=== PATIENT | male | born 1970 | race Caucasian/White ===

== ENCOUNTER 2017-10-12 11:16 | Emergency (ER) | payer OTHER, SELFPAY ==
--- NOTE | 2017-10-12 13:07 | RAD ---
LEFT KNEE 4 VIEWS: HISTORY: Knee pain. FINDINGS: There are marked arthritic changes of the medial compartment of the knee, also with patellofemoral an d lateral compartment degenerative changes. Small joint effusion. There is an area of lucency along the lateral side of the tibia near the tibiofibular joint, with overall features suggesting a benign lesion. IMPRESSION: Moderate arthritic changes of the knee with a small joint effusion. POS: KIRSTEN
== END 2017-10-12 13:34 | disposition home or self-care (01) ==
LOC: ERS 11:16
DX: M17.12 Unilateral primary osteoarthritis, left knee (principal); E03.9 Hypothyroidism, unspecified; J45.909 Unspecified asthma, uncomplicated; F41.9 Anxiety disorder, unspecified; F31.9 Bipolar disorder, unspecified; F17.210 Nicotine dependence, cigarettes, uncomplicated; Z79.899 Other long term (current) drug therapy

== ENCOUNTER 2017-10-29 17:15 | Emergency (ER) | payer OTHER ==
[2017-10-29] MEDS ORDERED: Ketorolac Tromethamine 30 MG/ML VIAL ONE (17:55)
[2017-10-29] MEDS ORDERED: Acetaminophen/Codeine 30-300mg Tablet ONE (18:29)
== END 2017-10-29 18:54 | disposition home or self-care (01) ==
LOC: ERS 17:15
DX: M25.562 Pain in left knee (principal); G89.29 Other chronic pain; J45.909 Unspecified asthma, uncomplicated; F41.9 Anxiety disorder, unspecified; F31.9 Bipolar disorder, unspecified; F17.210 Nicotine dependence, cigarettes, uncomplicated; E03.9 Hypothyroidism, unspecified
CPT/HCPCS: 96372; J1885

== ENCOUNTER 2018-03-28 09:17 | Day surgery (SDC) | payer OTHER ==
[2018-03-28 10:16] LABS: #Eosinphils 0.3 thou/uL (0.0-0.7)
[2018-03-28] MEDS ORDERED: Midazolam HCl 2 mg/2 ml Vial ONE (10:18)
[2018-03-28] MEDS ORDERED: Fentanyl 100 MCG/2 ML VIAL ONE ×5 (10:18→13:18)
[2018-03-28] MEDS ORDERED: Lidocaine 1% (PF) 30 ML VIAL ONE (10:18)
[2018-03-28] MEDS ORDERED: Sodium Chloride 0.9% 100 ML ONE (10:20)
[2018-03-28] MEDS ORDERED: CEFAZOLIN 2 GM/50 ML BAG ONE (10:20)
[2018-03-28] MEDS ORDERED: Tranexamic Acid 1,000 MG/10 ML VIAL ONE (10:20)
[2018-03-28] MEDS ORDERED: diphenhydrAMINE 25 MG CAP PO PRN (10:24)
[2018-03-28] MEDS ORDERED: traMADol HCl 50 MG TAB PO PRN ×3 (10:24→10:44)
[2018-03-28] MEDS ORDERED: Fentanyl 100 MCG/2 ML VIAL SLOW IVP PRN ×2 (10:24)
[2018-03-28] MEDS ORDERED: Ondansetron PF 4 MG/2 ML Vial IVP PRN ×2 (10:24→10:44)
[2018-03-28] MEDS ORDERED: HYDROcodone/Acetaminophen 10/325 mg Tablet PO PRN ×3 (10:24→10:44)
[2018-03-28] MEDS ORDERED: Promethazine HCl 25 MG/ML VIAL IM PRN ×3 (10:24→11:32)
[2018-03-28] MEDS ORDERED: Zolpidem Tartrate 5 MG TAB PO PRN ×2 (10:24→10:44)
[2018-03-28] MEDS ORDERED: Acetaminophen 325 MG TAB PO PRN (10:24)
[2018-03-28] MEDS ORDERED: CEFAZOLIN/Water 2 GM/20 ML SYRINGE SLOW IVP SCH (10:30)
[2018-03-28] MEDS ORDERED: Ropivacaine HCl/PF 250 ML in Premix Bag 1 BAG NERVE BLCK SCH (10:44)
[2018-03-28 10:56] LABS: #Lymphocytes 1.5 thou/uL (1.20-3.40); #Monocytes 0.4 thou/uL (0.11-0.59); #Neutrophils 1.9 thou/uL (1.40-6.50); %Basophils 1.1 % (0.0-1.0); %Eosinophils 6.8 % (0.0-10.0); %Lymphocytes 37.2 % (21.0-51.0); %Monocytes 8.8 % (0.0-10.0); %Neutrophils 46.1 % (42.0-75.0); Mean Corpuscular HGB CONC 34.6 g/dL (32.0-36.0); Mean Corpuscular Hemoglobin 32.6 pg (27.0-31.0); Mean Corpuscular Volume 94.4 fL (78.0-98.0); Platelet Count 232 thou/uL (130-400); RBC Distribution Width 11.9 % (11.5-14.5); Red Blood Cell (RBC) Count 4.59 mill/uL (4.70-6.10); White Blood Cell (WBC) Count 4.1 thou/uL (4.8-10.8)
[2018-03-28 11:02] LABS: PTT 27.9 SEC (22.9-36.1)
[2018-03-28] MEDS ORDERED: Ondansetron HCl/PF 4 MG/2 ML Vial IVP PRN (11:32)
[2018-03-28] MEDS ORDERED: Promethazine HCl 25 MG/ML VIAL SLOW IVP PRN (11:32)
[2018-03-28 11:45] LABS: Chloride 109 mmol/L (98-107); Sodium 139 mmol/L (136-145)
[2018-03-28 11:46] LABS: Calcium 8.7 mg/dL (7.8-10.44); Glucose 100 mg/dL (70-105)
[2018-03-28 11:48] LABS: Anion Gap 10 mmol/L (10-20); Carbon Dioxide 24 mmol/L (22-29)
[2018-03-28 11:49] LABS: Calc. Creatinine Clearance 125 mL/min (70-130); Estimated GFR-MDRD Greater than 90
[2018-03-28 11:50] LABS: BUN (Urea Nitrogen) 9 mg/dL (8.9-20.6)
[2018-03-28] MEDS ORDERED: Morphine 4 MG/ML VIAL ONE (12:40)
--- NOTE | 2018-03-28 13:16 | EKG ---
Test Reason : PREOP Blood Pressure : / mmHG Vent. Rate : 071 BPM Atrial Rate : 071 BPM P-R Int : 168 ms QRS Dur : 082 ms QT Int : 338 ms P-R-T Axes : 067 070 051 degrees QTc Int : 367 ms Normal sinus rhythm Minimal voltage criteria for LVH, may be normal variant Borderline ECG When compared with ECG of 01-OCT-2016 18:32, Vent. rate has decreased BY 43 BPM Criteria for Anterior infarct are no longer Present Confirmed by KAIA WOLF, SEdith ([id number]) on 03/28/2018 1:16:22 PM Referred By: DOUG Confirmed By:DR. Umesh MARTI MD
--- NOTE | 2018-03-28 13:22 | RAD ---
PA AND LATERAL CHEST: Date: 03/28/18 INDICATION: History of preoperative chest radiograph. COMPARISON: Prior exam dated 09/25/10. FINDINGS: There is no confluent air space opacity, pleural effusion, or pneumothorax evident. Heart size is wit hin normal limits. No pleural effusion is noted. No acute osseous abnormality is evident. IMPRESSION: No definite acute cardiopulmonary abnormality. POS: H
--- NOTE | 2018-03-28 13:46 | RAD ---
TWO VIEWS LEFT KNEE: Indication: Left knee post op evaluation. Comparison: 10-12-17 IMPRESSION: Since the prior examination there has been interval placement of left total knee prosthesis. Prosthet ic components are in the expected position. There is scattered intraarticular and periarticular soft tissue gas consistent with patient's recent post-operative state. POS: VANCE
[2018-03-28] MEDS ORDERED: Morphine 4 MG/ML VIAL SLOW IVP SCH (14:15)
[2018-03-28 14:52] VITALS: BMI 23.1
[2018-03-28] MEDS ORDERED: Bupivacaine 0.25% HCL 30 ML VIAL ONE (15:53)
[2018-03-28] MEDS ORDERED: Ropivacaine 0.5% HCl/PF (150 MG/30 ML VIAL) ONE (15:53)
[2018-03-28] MEDS: Sodium Chloride 0.9% 1,000 ML IV SCH ×2 (15:55→23:29)
[2018-03-28] MEDS: HYDROcodone/Acetaminophen 10/325 mg Tablet PO PRN ×2 (15:58→20:40)
[2018-03-28] MEDS ORDERED: Ketorolac Tromethamine 30 MG/ML VIAL ONE (16:46)
[2018-03-28] MEDS ORDERED: Ondansetron PF 4 MG/2 ML Vial ONE (16:46)
[2018-03-28] MEDS ORDERED: PROPOFOL 200 MG/20 ML VIAL ONE (16:46)
[2018-03-28] MEDS: CEFAZOLIN 2 GM/50 ML-DEXTROSE 2 GM in Premix Bag 1 BAG IVPB SCH (17:25)
--- NOTE | 2018-03-28 17:27 | OP ---
DATE OF PROCEDURE: 03/28/2018 PREOPERATIVE DIAGNOSIS: Degenerative joint disease, left knee. POSTOPERATIVE DIAGNOSIS: Degenerative joint disease, left knee. LEASING PROPERTY MANAGER: Nolan Barry PA-C. BLOOD LOSS: Minimal. SPECIMEN: None. DRAINS: None. COMPLICATIONS: None. TOURNIQUET TIME: 50 minutes. PROCEDURE PERFORMED: Left total knee replacement using [place] Triathlon 5 femur, 4 tibia, 32 mm patella, and 9 mm CS X3 polyethylene. PROCEDURE IN DETAIL: After informed consent was obtained in the preoperative holding area, the patient was taken to the operative suite where general anesthesia was induced. Once adequate level of general anesthesia was obtained, the patient was positioned and a well-padded tourniquet was placed around the left proximal thigh. The left lower extremity was then prepped and draped in the usual sterile fashion. Prior to exsanguination, a time-out was called and all members of the surgical team agreed upon site, surgeon, and patient. The extremity was then exsanguinated and the tourniquet was raised. A midline longitudinal incision was then made directly over the patella extending 2 fingerbreadths above the superior pole of the patella and 2 fingerbreadths inferior to the inferior patellar pole of the patella. Deeper subcutaneous layers were dissected sharply and local bleeding was controlled with Bovie electrocautery. A quad tendon longitudinal split was then made sharply and a median parapatellar arthrotomy was carried out both sharp and with Bovie electrocautery, carried down to 1 fingerbreadth medial to the tibial tubercle. The knee was then placed into flexion and the patella was everted nicely, and a copious fat pad ectomy was performed allowing for greater exposure of the tibia. The computer-assisted distal femoral fiducial was then placed and pinned firmly, and the distal femoral cutting guide was pinned firmly into place. The oscillating saw was then used to remove the appropriate amount of bone. The 4-in-1 cutting block was then placed on the distal femur and the oscillating saw was used to remove the appropriate amount of bone off the anterior, posterior, and chamfer cuts. After completion of bone cuts, the anterior cruciate ligament was resected sharply and the posterior cruciate ligament retractor was placed and the tibia was subluxed for better exposure. Partial meniscectomies were carried out, and the tibial computer-assisted fiducial was pinned, and the cutting guide was placed. Oscillating saw was then used to remove the bone, with Hohmann retractors used to take care and protect the collateral ligaments. After the tibial resection was performed, a laminar denitrator operator was placed in between the freshened bone cuts. The knee placed at 90 degrees and further bilateral meniscectomies were carried out, and the curved osteotome and curettage were used to remove any excess bone spurs in the posterior compartment. The trial femoral component, tibial baseplate were placed with the appropriate polyethylene trial insert with an appropriate polyethylene spacer and patellar button. The knee was taken through full range of motion with flexion and extension from 0 to 90 degrees and patellar broach squarely in the trochlea without any squinting or subluxation noted. The knee was also stable to varus and valgus stressing at 0, 15, 45, and 90 degrees of flexion. The drawer was negative. All trial components were then removed and the keel punch was used to provide the appropriate defect in the tibia with a mallet. The freshened bone cuts were copiously irrigated with pulsatile lavage of about 1.5 L to remove all excess debris. The freshened bone cuts were then dried with suction and lap sponge. The knee was placed in flexion and retractors were placed to provide access to all bone cuts. Tobramycin-impregnated methyl methacrylate cement was then placed on the freshened bone cuts and implants which were malleted firmly into place. Curettage and [place] elevators were used to remove any excess bone cement. The knee was placed into full extension and the patellar button was placed under compression, and the cement was allowed to cure. Once completed, the components were again taken through full range of motion and copious irrigation of the knee was carried out with another liter of normal saline. All components were inspected fully with full range of motion and varus and valgus stressing. There was no laxity noted and full extension was observed clinically. Primary closure was accomplished with #2 interrupted Vicryl stitch of the arthrotomy defect. This was oversewn with a #2 running Quill barbed stitch. The gravitational platelet system was then injected into the arthrotomy prior to closure. The subcutaneous layer was then closed with a running 0 barbed Monocryl stitch and skin closure accomplished with a running subcuticular 3-0 Monocryl barbed Quill stitch and augmented with cement on the skin. Tourniquet was lowered. Good spontaneous return of distal pulses was noted clinically and a sterile dressing was applied to the incision. The procedure was terminated without any complications. The patient was awakened in the operative suite and the was removed, and the patient was taken to the recovery room in stable condition. Job ID: [id number]
[2018-03-28] MEDS: Aspirin 81 mg Enteric Coated Tablet PO SCH (20:39)
[2018-03-28] MEDS ORDERED: clonazePAM 0.5 MG TAB PO SCH (21:00)
[2018-03-28] MEDS ORDERED: clonazePAM 1 MG TAB PO SCH (21:45)
[2018-03-28] MEDS: Fentanyl 100 MCG/2 ML VIAL IV PRN (23:19)
[2018-03-29] MEDS: Fentanyl 100 MCG/2 ML VIAL IV PRN ×4 (01:54→10:14)
[2018-03-29] MEDS: CEFAZOLIN 2 GM/50 ML-DEXTROSE 2 GM in Premix Bag 1 BAG IVPB SCH (02:49)
[2018-03-29] MEDS: HYDROcodone/Acetaminophen 10/325 mg Tablet PO PRN ×5 (02:50→23:05)
[2018-03-29 04:34] LABS: Hemoglobin 13.2 g/dL (14.0-18.0); Mean Corpuscular HGB CONC 34.8 g/dL (32.0-36.0); Mean Corpuscular Hemoglobin 33.1 pg (27.0-31.0); Mean Corpuscular Volume 95.1 fL (78.0-98.0); Mean Platelet Volume 7.2 fL (7.4-10.4); Platelet Count 208 thou/uL (130-400); RBC Distribution Width 11.9 % (11.5-14.5); White Blood Cell (WBC) Count 9.7 thou/uL (4.8-10.8)
[2018-03-29] MEDS: Levothyroxine Sodium 100 MCG TAB PO SCH (05:41)
--- NOTE | 2018-03-29 07:32 | OP ---
DATE OF PROCEDURE: 03/28/2018 PREOPERATIVE DIAGNOSIS: Degenerative joint disease, left knee. POSTOPERATIVE DIAGNOSIS: Degenerative joint disease, left knee. PROCEDURE: Left total knee arthroplasty using [place] Triathlon 5 femur, 4 tibia, 9 mm CSX3 polyethy kyle, A32 patella. SURGEON: Gil Greene M.D. COURT OPERATIONS CLERK: Nolan Barry PA-C. BLOOD LOSS: Minimal. SPECIMEN: None. DRAINS: None. COMPLICATIONS: None. TOURNIQUET TIME: 50 minutes. PROCEDURE IN DETAIL: After informed consent was obtained in the preoperative holding area. The coleman ent was taken to the operative suite where general anesthesia was induced. Once adequate level of ge neral anesthesia was obtained, the patient was positioned and a well-padded tourniquet was placed fausto und the left proximal thigh. The left lower extremity was then prepped and draped in the usual steri le fashion. Prior to exsanguination, a time out was called and all members of the surgical team agre ed upon site, surgeon, and patient. The extremity was then exsanguinated and the tourniquet was rais ed. A midline longitudinal incision was then made directly over the patella extending two fingerbrea dths above the superior pole of the patella and two fingerbreadths inferior to the inferior patellar pole of the patella. Deeper subcutaneous layers were dissected sharply and local bleeding was contro lled with Bovie electrocautery. A quad tendon longitudinal split was then made sharply and a median parapatellar arthrotomy was carried out both sharp and with Bovie electrocautery, carried down to one fingerbreadth medial to the tibial tubercle. The knee was then placed into flexion and the patella was everted nicely, and a copious fat pad ectomy was performed allowing for greater exposure of the t ibia. The computer-assisted distal femoral fiducial was then placed and pinned firmly, and the dista l femoral cutting guide was pinned firmly into place. The oscillating saw was then used to remove th e appropriate amount of bone. The 4-in-1 cutting block was then placed on the distal femur and the o scillating saw was used to remove the appropriate amount of bone off of the anterior, posterior, and chamfer cuts. After completion of bone cuts, the anterior cruciate ligament was resected sharply and the posterior cruciate ligament retractor was placed and the tibia was subluxed for better exposure. Partial meniscectomies were carried out, and the tibial computer-assisted fiducial was pinned, and the cutting guide was placed. Oscillating saw was then used to remove the bone with Hohmann retracto rs used to take care and protect the collateral ligaments. After the tibial resection was performed, a laminar snaker tractor driver was placed in between the freshened bone cuts. The knee placed at 90 degrees and further bilateral meniscectomies were carried out, and the curved osteotome and curettage was used t o remove any excess bone spurs in the posterior compartment. The trial femoral component, tibial bas eplate were placed with the appropriate polyethylene trial insert with an appropriate polyethylene sp acer and patellar button. The knee was taken through full range of motion with flexion and extension from 0-90 degrees and patellar broach squarely in the trochlea without any squinting or subluxation noted. The knee was also stable to varus and valgus stressing at 0, 15, 45, and 90 degrees of flexio n. The drawer was negative. All trial components were then removed and the keel punch was used to pr ovide the appropriate defect in the tibia with a mallet. The freshened bone cuts were copiously irri gated with pulsatile lavage of about 1-1/2 liters to remove all excess debris. The freshened bone cu ts were then dried and with suction and lap sponge. The knee was placed in flexion and retractors we re placed to provide access to all bone cuts. Tobramycin impregnated methyl methacrylate cement was then placed on the freshened bone cuts and implants which were malleted firmly into place. Curettage and [place] elevators were used to remove any excess bone cement. The knee was placed into full exten etienne and the patellar button was placed under compression, and the cement was allowed to cure. Once completed, the components were again taken through full range of motion and copious irrigation of the knee was carried out with another liter of normal saline. All components were inspected fully with full range of motion and varus and valgus stressing. There was no laxity noted and full extension was observed clinically. Primary closure was accomplished with #2 interrupted Vicryl stitch of the arth rotomy defect. This was oversewn with a #2 running Quill barbed stitch. The gravitational platelet system was then injected into the arthrotomy prior to closure. The subcutaneous layer was then close d with a running 0 barbed Monocryl stitch and skin closure accomplished with a running subcuticular 3 -0 Monocryl barbed Quill stitch and augmented with cement on the skin. Tourniquet was lowered. Good spontaneous return of distal pulses was noted clinically and a sterile dressing was applied to the i ncision. The procedure was terminated without any complications. The patient was awakened in the op erative suite and the tourniquet was removed, and the patient was taken to the recovery room in stabl e condition.
[2018-03-29] MEDS ORDERED: Diabetic Tussin 200 MG/10 ML UDCUP PO PRN (07:45)
[2018-03-29] MEDS ORDERED: Acetaminophen 500 MG TAB PO PRN (07:45)
[2018-03-29] MEDS ORDERED: Diphenoxylate HCl/Atropine Tablet PO PRN (07:45)
[2018-03-29] MEDS ORDERED: Cepastat Lozenges 1 LOZ PO PRN (07:45)
[2018-03-29] MEDS ORDERED: hydrALAZINE 20 MG/ML VIAL SLOW IVP PRN (07:45)
[2018-03-29] MEDS ORDERED: Loperamide HCl 2 MG CAP PO PRN (07:45)
[2018-03-29] MEDS ORDERED: Eucerin (Mineral Oil/Petrolatum,White) 30 gm Jar TOP PRN (07:45)
[2018-03-29] MEDS ORDERED: Bisacodyl 5 MG TAB PO PRN (07:45)
[2018-03-29] MEDS ORDERED: HYDROcodone/Acetaminophen 5/325 mg Tablet PO PRN (07:45)
[2018-03-29] MEDS ORDERED: Loratadine 10 MG TAB PO PRN (07:45)
[2018-03-29] MEDS ORDERED: Sodium Chloride 0.65% Nasal 44 ML BOT EA NARE PRN (07:45)
[2018-03-29] MEDS ORDERED: Artificial Tears 18 DROP/0.9 ML EA EYE PRN (07:45)
[2018-03-29] MEDS: Multivitamin W/ Minerals 1 TAB PO SCH (07:54)
[2018-03-29] MEDS: Senokot S 8.6-50 MG TAB PO SCH ×2 (07:54→20:54)
[2018-03-29] MEDS: Aspirin 81 mg Enteric Coated Tablet PO SCH ×2 (07:55→20:54)
[2018-03-29] MEDS: Ferrous Gluconate 324 MG TAB PO SCH ×2 (07:55→20:55)
[2018-03-29] MEDS: Sodium Chloride 0.9% 1,000 ML IV SCH ×3 (07:58→21:44)
[2018-03-29] MEDS ORDERED: PHENTERMINE HCL 37.5 MG PO SCH (09:00)
[2018-03-29] MEDS: Nicotine 21 MG PATCH TD SCH (09:11)
[2018-03-29] MEDS: Famotidine 20 MG TAB PO SCH ×2 (09:11→20:55)
--- NOTE | 2018-03-29 14:56 | CON ---
DATE OF CONSULTATION: 03/29/2018 PRIMARY CARE PHYSICIAN: Dr. Willian Estrada, hand spinner. The patient does not have any new primary care physician. REASON FOR ADMISSION: Elective admission for left total knee replacement. REASON FOR CONSULTATION: Medical co-management. HISTORY OF PRESENT ILLNESS: A 47-year-old male who has underlying history of hypothyroidism, who presented to the hospital for left knee pain. The patient has a worsening left knee pain for the last two months. The patient was following Dr. Greene as an outpatient basis. The patient had a trial of all conservative treatment options without any significant improvement. The patient's left knee pain was bothering his routine activities and quality of life and that is why Dr. Greene admitted him for elective admission for left total knee replacement. The patient had left total knee replacement on March 28, 2018, without any complication and postoperatively, the patient is admitted to [facility] and we are consulted for medical co-management. The patient was seen by me today and he has a left knee swelling. He has left knee pain. He does not have any fever, chills, chest pain, or dizziness. His pain is overall controlled with pain medication and he has nerve block in place. REVIEW OF SYSTEMS: Please see my HPI for pertinent positive and negative. All other review of systems reviewed and negative except as mentioned in the HPI. REVIEW OF SYSTEMS: The following complete review of systems was negative, unless otherwise mentioned in the HPI or below: Constitutional: Weight loss or gain, ability to conduct usual activities. Skin: Rash, itching. Eyes: Double vision, pain. ENT/Mouth: Nose bleeding, neck stiffness, pain, tenderness. Cardiovascular: Palpitations, dyspnea on exertion, orthopnea. Respiratory: Shortness of breath, wheezing, cough, hemoptysis, fever or night sweats. Gastrointestinal: Poor appetite, abdominal pain, heartburn, nausea, vomiting, constipation, or diarrhea. Genitourinary: Urgency, frequency, dysuria, nocturia. Musculoskeletal: Pain, swelling. Neurologic/Psychiatric: Anxiety, depression. Allergy/Immunologic: Skin rash, bleeding tendency. PAST MEDICAL HISTORY: Klinefelter syndrome, hypothyroidism, and asthma. PAST SURGICAL HISTORY: Status post left total knee replacement yesterday. PAST PSYCHIATRIC HISTORY: Anxiety, depression, and bipolar disorder. SOCIAL HISTORY: The patient is smoking about half a pack per day. He denies any other illicit drug abuse. He is . He drinks alcohol socially. ALLERGIES: NO KNOWN DRUG ALLERGY. FAMILY HISTORY: No strong family history of premature coronary artery disease, stroke, or cancer. CURRENT HOME MEDICATIONS: 1. Clonazepam 0.5 mg three tablets at bedtime. 2. Levothyroxine 100 mcg p.o. daily. 3. Phentermine 37.5 half a tablet daily. 4. Testosterone 50 mg IM every week. HOSPITAL COURSE: Reviewed. PHYSICAL EXAMINATION: VITAL SIGNS: Currently, temperature 99.3, pulse 88, respiratory rate 16, saturation 100% on room air, blood pressure 162/90, and weight 185 pounds. GENERAL: The patient is currently alert, awake, in no obvious acute distress. Pain is controlled. HEAD: Normocephalic, atraumatic. EYES: Pupils are round, reactive to light. Extraocular muscles intact. ENT: Oropharynx within normal limits. Moist mucous membranes. No oral lesion. No pharyngeal erythema. No exudate. NECK: Supple. No thyromegaly. No carotid bruits. No jugular venous distention. LUNGS: Clear to auscultation without any rhonchi or rales. CARDIAC: S1, S2, regular. No murmur elicited. No gallop. No rub. ABDOMEN: Soft. Bowel sounds present. Nontender and nondistended. No organomegaly. No mass. No suprapubic tenderness. BACK: Unremarkable. No CVA tenderness. EXTREMITIES: Upper extremity, passive movement of all joints are normal. Lower extremity, left knee is a little bit swollen, but surgical site is clean and healthy. Has tenderness noted at left knee. Right lower extremity within normal limit. NEUROLOGIC: Nonfocal examination. PSYCHIATRIC: Normal affect. HEMATOLOGIC: No lymphadenopathy. LABORATORY DATA: Significant labs: CBC; WBC 4.1, hemoglobin 15.0, platelets 232. INR 1.0. BMP; sodium 139, potassium 4.0, chloride 109, carbon dioxide 24, BUN 9, creatinine 0.80, glucose 100, calcium 8.7. Knee x-ray reviewed by me, which is unremarkable, postoperative changes. Chest x-ray; based on my review, no acute cardiopulmonary process. ASSESSMENT AND PLAN: Impression: 1. Status post left total knee replacement. The patient is going to get aspirin 81 mg b.i.d., as per [facility] protocol treatment for deep venous thrombosis prophylaxis. He has currently nerve block, which will be managed by the Anesthesia Team. The patient's pain will be controlled with pain medication. He will continue ferrous gluconate 324 mg p.o. b.i.d. He will have continuous PT/OT while in the hospital as per [facility] protocol treatment. 2. Hypothyroidism. Continue Synthroid 100 mcg p.o. daily. 3. Tobacco abuse disorder. Smoking cessation counseling given. Nicotine patch will be offered while in the hospital, if needed. 4. Anxiety and depression. Continue clonazepam 0.5 mg three tablets at bedtime. 5. Gastrointestinal prophylaxis. Pepcid 20 mg p.o. b.i.d. CODE STATUS: The patient is full code. The patient's is surrogate decision maker. DISPOSITION/PLAN: Based on the clinical course. The patient will have PT/OT. If he does well, then possibly the patient may be discharged tomorrow. PLAN OF CARE: Discussed with the patient's . Thank you for consult. We will follow with you while in the hospital. Job ID: [id number]
[2018-03-29] MEDS ORDERED: clonazePAM 0.5 MG TAB PO SCH (21:00)
[2018-03-30 05:36] LABS: Hemoglobin 13.8 g/dL (14.0-18.0); Mean Corpuscular HGB CONC 34.7 g/dL (32.0-36.0); Mean Corpuscular Hemoglobin 33.1 pg (27.0-31.0); Mean Corpuscular Volume 95.5 fL (78.0-98.0); Mean Platelet Volume 7.1 fL (7.4-10.4); Platelet Count 202 thou/uL (130-400); RBC Distribution Width 11.9 % (11.5-14.5); Red Blood Cell (RBC) Count 4.17 mill/uL (4.70-6.10); White Blood Cell (WBC) Count 10.3 thou/uL (4.8-10.8)
[2018-03-30] MEDS: Levothyroxine Sodium 100 MCG TAB PO SCH (06:36)
[2018-03-30] MEDS: HYDROcodone/Acetaminophen 10/325 mg Tablet PO PRN ×2 (07:53→11:53)
[2018-03-30] MEDS: Famotidine 20 MG TAB PO SCH (07:54)
[2018-03-30] MEDS: Senokot S 8.6-50 MG TAB PO SCH (07:54)
[2018-03-30] MEDS: Aspirin 81 mg Enteric Coated Tablet PO SCH (07:54)
[2018-03-30] MEDS: Ferrous Gluconate 324 MG TAB PO SCH (07:54)
[2018-03-30] MEDS: Multivitamin W/ Minerals 1 TAB PO SCH (07:55)
[2018-03-30] MEDS: Nicotine 21 MG PATCH TD SCH ×2 (07:55→08:03)
--- NOTE | 2018-03-30 10:28 | PDOC.PN ---
- Subjective Encounter Start Date: 03/30/18 Encounter Start Time: 08:30 -: old records requested/rev Patient seen and examined. No new complaints. No overnight events - Objective Resuscitation Status - Order Detail: 03/29/18 07:47 Resuscitation Status Routine Resuscitation Status: FULL: Full Resuscitation MAR Reviewed: Yes Vital Signs & Weight: Vital Signs (12 hours) Temp Pulse Resp BP BP Pulse Ox 03/30/18 07:44 98.9 F 107 H 16 139/79 95 03/30/18 04:20 98.2 F 86 18 137/79 96 03/30/18 00:14 99.3 F 97 18 147/73 H 97 Weight Admit Weight 185 lb Weight 185 lb I&O: 03/29/18 03/30/18 03/31/18 06:59 06:59 06:59 Intake Total 980 3140 1080 Output Total 500 1450 Balance 480 1690 1080 Result Diagrams: 03/30/18 04:54 03/28/18 10:44 Phys Exam - Physical Examination Constitutional: NAD HEENT: PERRLA, moist MMs, sclera anicteric Neck: no JVD, supple Respiratory: no wheezing, no rales, no rhonchi Cardiovascular: RRR, no significant murmur, no rub Gastrointestinal: soft, non-tender, no distention, positive bowel sounds Musculoskeletal: no edema, pulses present Neurological: non-focal, normal sensation, moves all 4 limbs Lymphatic: no nodes Psychiatric: normal affect, A&O x 3 Skin: no rash, normal turgor Dx/Plan (1) Status post total left knee replacement Code(s): Z96.652 - PRESENCE OF LEFT ARTIFICIAL KNEE JOINT Status: Acute (2) Anxiety and depression Code(s): F41.9 - ANXIETY DISORDER, UNSPECIFIED; F32.9 - MAJOR DEPRESSIVE DISORDER, SINGLE EPISODE, UNSPECIFIED Status: Chronic (3) Hypothyroidism Code(s): E03.9 - HYPOTHYROIDISM, UNSPECIFIED Status: Chronic (4) Tobacco abuse Code(s): Z72.0 - TOBACCO USE Status: Chronic - Plan cont current plan of care, plan discussed w/ family, PT/OT * continue aspirin for DVT prophylaxis * pt is doing well with PT * medically stable for discharge * continue home medication * medication reviewed as below * symptomatic treatment. Review of Systems - Review of Systems ENT: negative: Ear Pain, Ear Discharge, Nose Pain, Nose Discharge, Nose Congestion, Mouth Pain, Mouth Swelling, Throat Pain, Throat Swelling, Other Respiratory: negative: Cough, Dry, Shortness of Breath, Hemoptysis, SOB with Excertion, Pleuritic Pain, Sputum, Wheezing Cardiovascular: negative: chest pain, palpitations, orthopnea, paroxysmal nocturnal dyspnea, edema, light headedness, other Gastrointestinal: negative: Nausea, Vomiting, Abdominal Pain, Diarrhea, Constipation, Melena, Hematochezia, Other Genitourinary: negative: Dysuria, Frequency, Incontinence, Hematuria, Retention , Other Musculoskeletal: negative: Neck Pain, Shoulder Pain, Arm Pain, Back Pain, Hand Pain, Leg Pain, Foot Pain, Other Skin: negative: Rash, Lesions, Tito, Bruising, Other - Medications/Allergies Allergies/Adverse Reactions: Allergies Allergy/AdvReac Type Severity Reaction Status Date / Time No Known Allergies Allergy Verified 03/28/18 15:02 Medications: Current Medications Acetaminophen (Tylenol) 650 mg PO Q4H PRN PRN Reason: HERNÁNDEZ/ T > 101F; Mild Pain (1-3) Hydrocodone Bitart/Acetaminophen ([place] 10/325) 1 tab PO Q4H PRN PRN Reason: Pain (1-3) Hydrocodone Bitart/Acetaminophen ([place] 10/325) 2 tab PO Q4H PRN PRN Reason: PAIN (4-6) Last Admin: 03/30/18 07:53 Dose: 2 tab Artificial Tears (Tears Naturale) 2 drop EA EYE PRN PRN PRN Reason: Dry Eyes Aspirin (Ecotrin) 81 mg PO BID [facility] Last Admin: 03/30/18 07:54 Dose: 81 mg Bisacodyl (Dulcolax) 10 mg PO DAILYPRN PRN PRN Reason: Constipation Clonazepam (Klonopin) 1.5 mg PO HS [facility] Last Admin: 03/29/18 20:55 Dose: 1.5 mg Diphenhydramine HCl (Benadryl) 25 mg PO Q6H PRN PRN Reason: Itching Last Admin: 03/29/18 23:05 Dose: 25 mg Diphenoxylate HCl/Atropine (Lomotil) 1 tab PO QIDPRN PRN PRN Reason: Diarrhea/Loose Stools Famotidine (Pepcid) 20 mg PO BID [facility] Last Admin: 03/30/18 07:54 Dose: 20 mg Fentanyl (Sublimaze) 50 mcg IV Q1H PRN PRN Reason: Breakthrough pain Last Admin: 03/29/18 10:14 Dose: 50 mcg Ferrous Gluconate (Fergon) 324 mg PO BID [facility] Last Admin: 03/30/18 07:54 Dose: 324 mg Guaifenesin (Robitussin Sf) 200 mg PO Q4H PRN PRN Reason: Cough Hydralazine HCl (Apresoline) 10 mg SLOW IVP Q4H PRN PRN Reason: SBP > 180 and HR < 70 Sodium Chloride (Normal Saline 0.9%) 1,000 mls @ 100 mls/hr IV .Q10H [facility] Last Admin: 03/29/18 21:44 Dose: Not Given Ropivacaine 250 ml/ Device 250 mls @ 10 mls/hr NERVE BLCK INF [facility] Last Admin: 03/29/18 13:35 Dose: 250 mls Iron/Minerals/Multivitamins (Theragran M) 1 tab PO DAILY [facility] Last Admin: 03/30/18 07:55 Dose: 1 tab Levothyroxine Sodium (Synthroid) 100 mcg PO 0600 [facility] Last Admin: 03/30/18 06:36 Dose: 100 mcg Loperamide HCl (Imodium) 2 mg PO PRN PRN PRN Reason: Diarrhea/Loose Stools Loratadine (Claritin) 10 mg PO DAILYPRN PRN PRN Reason: Sinus Symptoms Mineral Oil/White Petrolatum (Eucerin Cream) 0 gm TOP BIDPRN PRN PRN Reason: Dry Skin Nicotine (Nicoderm Patch) 21 mg TD DAILY [facility] Last Admin: 03/30/18 08:03 Dose: Not Given Ondansetron HCl (Zofran) 4 mg IVP Q6H PRN PRN Reason: Nausea/Vomiting Promethazine HCl (Phenergan) 12.5 mg IM Q4H PRN PRN Reason: Nausea/Vomiting Senna/Docusate Sodium (Senokot S) 2 tab PO BID [facility] Last Admin: 03/30/18 07:54 Dose: 2 tab Sodium Chloride (Flush - Normal Saline) 10 ml IVF PRN PRN PRN Reason: Saline Flush Sodium Chloride (Hoyt Nasal [place] 0.65%) 0 ml EA NARE QIDPRN PRN PRN Reason: Nasal Congestion Testosterone Cypionate (Depo-Testosterone) 50 mg IM Q7D [facility] Last Admin: 03/28/18 15:55 Dose: Not Given Throat Lozenges (Cepastat Lozenges) 1 viviane PO Q2H PRN PRN Reason: Sore Throat Tramadol HCl (Ultram) 50 mg PO Q6H PRN PRN Reason: Mild Pain (1-3) Tramadol HCl (Ultram) 100 mg PO Q6H PRN PRN Reason: Moderate Pain 4-6 Last Admin: 03/29/18 17:22 Dose: 100 mg Zolpidem Tartrate (Ambien) 5 mg PO HSPRN PRN PRN Reason: Insomnia
[2018-03-30 11:39] VITALS: BP 145/83; TEMP 98.2
--- NOTE | 2018-03-30 11:56 | DIS ---
DATE OF ADMISSION: 03/28/2018 DATE OF DISCHARGE: 03/30/2018 DISCHARGE DISPOSITION: Home. PRIMARY DISCHARGE DIAGNOSIS: Status post left total knee replacement. SECONDARY DISCHARGE DIAGNOSES: Anxiety, depression, hypothyroidism, and tobacco abuse disorder. PRIMARY PROCEDURE/OPERATION: Left total knee replacement. RADIOLOGICAL INVESTIGATION: Knee x-ray, postoperative changes. Chest x-ray, normal. SIGNIFICANT LABORATORY DATA: WBC 10.3, hemoglobin 13.8, platelets 202. INR 1.0. Sodium 139, creatinine 0.80. DISCHARGE MEDICATIONS: The patient will continue all his previous home medications including, 1. Clonazepam 0.5 mg 3 tablets at bedtime. 2. Synthroid 100 mcg p.o. daily. 3. Phentermine 37.5 half tablet daily. 4. Testosterone 50 mg IM every 7 days. 5. Aspirin 81 mg p.o. b.i.d. 6. [place]ro 10 one or two tablets q.4 hourly p.r.n. for pain. CONTRAINDICATION: None. CODE STATUS: Full code. INPATIENT HOMEMAKER COMPANION: Dr. Greene, was primary. [facility] Team was consulted for medical comanagement. TEST RESULTS PENDING ON DISCHARGE: None. ALLERGIES: NO KNOWN DRUG ALLERGIES. DISCHARGE PLAN: Post hospital, the patient has an appointment with Dr. Gil Greene on April 19, 2018, at 3:30 p.m. HOSPITAL COURSE: A 47-year-old male who was electively admitted by Dr. Greene for left total knee replacement. Please see my consult note for further detail. The patient had surgery without any complications. Postoperatively, [facility] Team was co-managing medical problems. The patient did very well with [facility] protocol treatment, and today, he is planned for discharge. The patient is seen and examined at bedside today. Please see my progress note from today for further detail. While in hospital, he was given aspirin for DVT prophylaxis. He had nerve block for 1 or 2 days for pain control, and the pain was controlled with pain medication. While in hospital, the patient is given counselling to avoid smoking. Healthy lifestyle measures discussed with the patient. Overall, the patient is medically stable for discharge today. Job ID: [id number]
== END 2018-03-30 14:00 | disposition home or self-care (01) ==
LOC: SDC 09:17 → SJJU 15:00 → SDC 03-30 14:00
PROVIDERS: ATTEND Orthopaedic Surgery
PROC: 0SRD06Z Replacement of Left Knee Joint with Oxidized Zirconium on Polyethylene Synthetic Substitute, Open Approach (ICD-10-PCS; principal; 2018-03-28)
DX: M17.12 Unilateral primary osteoarthritis, left knee (principal); E03.9 Hypothyroidism, unspecified; F41.8 Other specified anxiety disorders; J45.909 Unspecified asthma, uncomplicated; Z79.82 Long term (current) use of aspirin; Z79.899 Other long term (current) drug therapy
CPT/HCPCS: 36415; 71046; 80048; 85025; 85027; 85610; 85730; 86850; 86900; 86901; 93005; 93010; C1713; C1776; G8978-GP-CK; G8979-GP-CI; J1885; J2001; J2250; J2270; J2405; J2704; J2795; J3010; J3370; J7050; S0020

== ENCOUNTER 2019-04-28 17:28 | Emergency (ER) | payer OTHER ==
[2019-04-28] MEDS ORDERED: Lidocaine 1% w/Epinephrine 1:100K 20 ML VIAL ONE (18:45)
[2019-04-28] MEDS ORDERED: Triple Antibiotic Oint 1 GM Packet ONE (19:25)
[2019-04-28] MEDS ORDERED: Adacel (T-DAP) 0.5 ML SYRINGE ONE (19:25)
== END 2019-04-28 19:40 | disposition home or self-care (01) ==
LOC: ERS 17:28
DX: S01.81XA Laceration without foreign body of other part of head, initial encounter (principal); F41.9 Anxiety disorder, unspecified; F31.9 Bipolar disorder, unspecified; F17.210 Nicotine dependence, cigarettes, uncomplicated; E03.9 Hypothyroidism, unspecified; Z79.899 Other long term (current) drug therapy; W06.XXXA Fall from bed, initial encounter
CPT/HCPCS: 12013; 90471; 90715

== ENCOUNTER 2019-08-21 09:14 | Outpatient (CLI) | payer BC ==
--- NOTE | 2019-08-21 11:27 | CT ---
Exam: NONCONTRAST TEMPORAL BONES CT HISTORY: Right ear drum rupture. Right ear hearing loss. COMPARISON: None. FINDINGS: Visualized brain parenchyma does not demonstrate any acute abnormality. Bilateral ocular lenses are a ppropriately located. Both globes are intact. Retrobulbar fat is preserved. Symmetric attenuation the optic nerves and ocular rectus muscles. There is mucosal thickening involving ethmoid air cells and visualized frontal sinuses. Periapical hayden cency involving left maxillary teeth is noted. Incomplete evaluation. Incompletely evaluated right mandibular fracture Right IAC/temporal bone: The internal auditory canal, cochlea, vestibule and semicircular canals have an appropriate appearance and configuration. Vestibular aqueduct is not enlarged. There is opacification of the epitympanum and mesotympanum. There is abnormal soft tissue density in Prussak's space. Nevertheless, the scutum is sharp. Normal-appearing ossicular chain. Stapedial footplate appears to be appropriately located. Tegmen tympani and tegmen mastoideum are preserved. There is par tial opacification of the mastoid air cells. Intraosseous septae are still preserved. The tympanic membrane does appear to have a defect along its superior aspect. Inferior tympanic membrane appears t o be thickened and slightly retracted. External auditory canal is patent. Left IAC/temporal bone: The internal auditory canal, cochlea, vestibule and semicircular canals have an appropriate appearance and configuration. Vestibular aqueduct is not enlarged. There is adequate aeration of the middle ear. No abnormal hypodensities in Prussak's space. Scutum is sharp. Ossicular chain is intact. Stapedial footplate is appropriately located. Tegmen tympani and tegmen mastoideum are preserved. Adequate aeration of the mastoid air cells. Intraosseous septae are preserved. Tympani c membrane and external auditory canal have a normal appearance. IMPRESSION: 1. Defect involving the superior aspect of the right tympanic membrane. The inferior tympanic membran e is thickened and slightly retracted. 2. Partial opacification of the right middle ear and right mastoid air cells. 3. Presumed old right mandible fracture, incompletely evaluated 4. Periapical lucencies suggesting periodontal disease. Transcribed Date/Time: 08/21/2019 11:46 AM
== END 2019-08-21 09:15 | disposition home or self-care (01) ==
LOC: BICCT 09:14
PROVIDERS: ATTEND Student in an Organized Health Care Education/Training Program
DX: H72.91 Unspecified perforation of tympanic membrane, right ear (principal); H73.891 Other specified disorders of tympanic membrane, right ear
CPT/HCPCS: 70480

== ENCOUNTER 2020-12-18 | Outpatient (CLI) | payer OTHER | END 2020-12-18 10:22 | disposition home or self-care (01) | DX: H71.90 Unspecified cholesteatoma, unspecified ear (principal) ==

== ENCOUNTER 2023-06-03 19:25 | Emergency (ER) | payer BC, SELFPAY ==
[2023-06-03 20:46] LABS: SARS-CoV-2 NAA Rapid Test Not Detected (NotDetected)
[2023-06-03 20:57] LABS: #Eosinphils 0.1 thou/uL (0.0-0.7); #Monocytes 0.5 thou/uL (0.11-0.59); #Neutrophils 3.7 thou/uL (1.40-6.50); %Basophils 0.6 % (0.0-1.0); %Eosinophils 1.8 % (0.0-10.0); %Lymphocytes 15.6 % (21.0-51.0); %Monocytes 10.3 % (0.0-10.0); %Neutrophils 71.5 % (42.0-75.0); Hematocrit 40.3 % (42.0-52.0); Hemoglobin 14.6 g/dL (14.0-18.0); Mean Corpuscular HGB CONC 36.2 g/dL (32.0-36.0); Mean Corpuscular Hemoglobin 33.3 pg (27.0-31.0); Mean Corpuscular Volume 91.8 fl (78.0-98.0); Mean Platelet Volume 9.7 fL (7.4-10.4); Platelet Count 168 10x3/uL (130-400); RBC Distribution Width 11.7 % (11.5-14.5); Red Blood Cell (RBC) Count 4.39 mill/uL (4.70-6.10); White Blood Cell (WBC) Count 5.1 10x3/uL (4.8-10.8)
[2023-06-03 21:19] LABS: ALT (SGPT) 31 U/L (8-55); AST (SGOT) 33 U/L (5-34); Albumin 4.1 g/dL (3.5-5.0); Alkaline Phosphatase 74 U/L (40-110); Anion Gap 11 mmol/L (10-20); BUN (Urea Nitrogen) 23 mg/dL (8.4-25.7); Bilirubin, Total 0.5 mg/dL (0.2-1.2); Calc. Creatinine Clearance 0 mL/min (70-130); Calcium 9.2 mg/dL (7.8-10.44); Carbon Dioxide 23 mmol/L (22-29); Chloride 106 mmol/L (98-107); Estimated GFR 87; Globulin 2.7 g/dL (2.4-3.5); Glucose 109 mg/dL (70-105); Lipase 31 U/L (8-78); Potassium 4.4 mmol/L (3.5-5.1); Protein, Total 6.8 g/dL (6.0-8.3); Sodium 136 mmol/L (136-145)
[2023-06-03 21:23] LABS: Troponin I Less than 0.010 ng/mL (< 0.028)
== END 2023-06-03 21:34 | disposition home or self-care (01) ==
LOC: ERS 19:25
DX: R07.9 Chest pain, unspecified (principal); R05.9 Cough, unspecified; E03.9 Hypothyroidism, unspecified; Z87.891 Personal history of nicotine dependence; Z79.899 Other long term (current) drug therapy
CPT/HCPCS: 36415; 71045; 80053; 83690; 84484; 85025; 93005

== ENCOUNTER 2023-11-10 20:43 | Emergency (ER) | payer BC, SELFPAY ==
[2023-11-10] MEDS ORDERED: Ondansetron ODT 4 MG TAB ONE (21:56)
[2023-11-10] MEDS ORDERED: Dicyclomine 20 MG TAB ONE (21:58)
== END 2023-11-10 22:17 | disposition home or self-care (01) ==
LOC: ERS 20:43
DX: R11.2 Nausea with vomiting, unspecified (principal); R19.7 Diarrhea, unspecified
CPT/HCPCS: 99283; Q0162

== ENCOUNTER 2023-11-29 10:03 | Emergency (ER) | payer BC, SELFPAY ==
[2023-11-29] MEDS ORDERED: Ondansetron PF 4 MG/2 ML Vial ONE (10:11)
[2023-11-29 10:36] LABS: #Basophils 0.03 10x3/uL (0.0-0.2); %Basophils 0.8 % (0.0-1.0); %Eosinophils 5.8 % (0.0-10.0); %Lymphocytes 31.5 % (21.0-51.0); %Monocytes 11.1 % (0.0-10.0); %Neutrophils 50.5 % (42.0-75.0); Hematocrit 35.8 % (42.0-52.0); Hemoglobin 13.2 g/dL (14.0-18.0); Mean Corpuscular HGB CONC 36.9 g/dL (32.0-36.0); Mean Corpuscular Volume 89.5 fL (78.0-98.0); Platelet Count 197 10x3/uL (130-400); RBC Distribution Width 12.1 % (11.5-14.5)
[2023-11-29 10:53] LABS: ALT (SGPT) 28 U/L (8-55); AST (SGOT) 26 U/L (5-34); Albumin 3.4 g/dL (3.5-5.0); Alkaline Phosphatase 55 U/L (40-110); Anion Gap 12 mmol/L (10-20); BUN (Urea Nitrogen) 25 mg/dL (8.4-25.7); Bilirubin, Total 0.6 mg/dL (0.2-1.2); Calc. Creatinine Clearance 0 mL/min (70-130); Calcium 8.8 mg/dL (7.8-10.44); Carbon Dioxide 21 mmol/L (22-29); Chloride 106 mmol/L (98-107); Estimated GFR 94; Glucose 91 mg/dL (70-105); Lipase 37 U/L (8-78); Potassium 3.9 mmol/L (3.5-5.1); Protein, Total 6.4 g/dL (6.0-8.3); Sodium 135 mmol/L (136-145)
[2023-11-29 10:59] LABS: Troponin I Less than 0.010 ng/mL (< 0.028)
== END 2023-11-29 11:42 | disposition home or self-care (01) ==
LOC: ERS 10:03
DX: R11.2 Nausea with vomiting, unspecified (principal)
CPT/HCPCS: 36415; 80053; 83690; 84484; 85025; 93005; 96361; 96374; J2405